=== PATIENT | male | born 1985 | race Caucasian/White ===

== ENCOUNTER 2016-10-21 17:06 | Emergency (ER) | payer SELFPAY ==
[2016-10-21] MEDS ORDERED: Sodium Chloride 0.9% 10 ML Syringe FLUSH PRN (17:27)
[2016-10-21 18:04] LABS: CHLORIDE,CL 105 mmol/L (101-111); SODIUM,NA 140 mmol/L (135-145)
[2016-10-21] MEDS ORDERED: GI Cocktail Oral Solution 30 ML PO ONE (18:58)
[2016-10-21] MEDS ORDERED: Pantoprazole 40 MG Vial IVPUSH ONE (18:59)
[2016-10-21 19:01] VITALS: BP 126/71
--- NOTE | 2016-10-21 19:14 | EDM.PDOC ---
Scribed by Yessi Pickens 10/21/16 1900 for Juno Ryder MD ED HPI GENERAL MEDICAL PROBLEM - General Chief Complaint: Chest Pain Stated Complaint: SHARP PAINS IN CHEST, UPPER BACK PAIN [id number] Time Seen by Provider: 10/21/16 17:15 Source of Information: Reports: Patient, RN, RN Notes Reviewed History Limitations: Reports: No Limitations - History of Present Illness INITIAL COMMENTS - FREE TEXT/NARRATIVE: Patient arrived by POV with pain radiating to the chest on and off worse today. He has a history of GERD and heartburn in the past. He feels it has been getting worse, but he has not been to the clinic. Chest Pain Score (Numeric/FACES): 6 - Related Data Allergies Allergy/AdvReac Type Severity Reaction Status Date / Time Penicillins Allergy Airway Verified 10/21/16 17:50 Tightness sertraline [From Zoloft] Allergy Airway Verified 10/21/16 17:50 Tightness Home Meds: Home Meds Albuterol [IJD: Ventolin HFA] 1 puff INH .TWICE DAILY 10/21/16 [History] Mag Hydrox/Al Hydrox/Simeth [Maalox Maximum Strength Susp] 10/21/16 [History] Past Medical History Gastrointestinal History: Reports: GERD Social & Family History - Family History Family Medical History: Noncontributory ED ROS GENERAL - Review of Systems Review Of Systems: ROS reveals no pertinent complaints other than HPI. ED EXAM, GENERAL - Physical Exam Exam: See Below Exam Limited By: No Limitations General Appearance: Alert, WD/WN, No Apparent Distress Eye Exam: Bilateral Eye: Normal Inspection Ears: Normal External Exam, Normal Canal, Hearing Grossly Normal, Normal TMs Nose: Normal Inspection, Normal Mucosa, No Blood Throat/Mouth: Normal Inspection, Normal Lips, Normal Teeth, Normal Gums, Normal Oropharynx, Normal Voice, No Airway Compromise Head: Atraumatic, Normocephalic Neck: Normal Inspection, Supple, Non-Tender, Full Range of Motion Respiratory/Chest: No Respiratory Distress, Lungs Clear, Normal Breath Sounds, No Accessory Muscle Use, Chest Non-Tender Cardiovascular: Normal Peripheral Pulses, Regular Rate, Rhythm, No Edema, No Gallop, No JVD, No Murmur, No Rub GI/Abdominal: Tender (mild epigastric) (Male) Exam: Deferred Rectal (Males) Exam: Deferred Back Exam: Normal Inspection, Full Range of Motion, NT Extremities: Normal Inspection, Normal Range of Motion, Non-Tender, Normal Capillary Refill, No Pedal Edema Neurological: Alert, Oriented, CN II-XII Intact, Normal Cognition, Normal Gait, Normal Reflexes, No Motor/Sensory Deficits Psychiatric: Normal Affect, Normal Mood Skin Exam: Warm, Dry, Intact, Normal Color, No Rash EKG INTERPRETATION EKG Date: 10/21/16 Time: 17:21 Rhythm: Other (sinus bradycardia) Rate (Beats/Min): 57 [place]: Normal P-Wave: Present QRS: Normal ST-T: Normal QT: Normal Course - Vital Signs Last Recorded V/S: Last Vital Signs Temp 36.8 C 10/21/16 19:00 Pulse 63 10/21/16 19:00 Resp 12 10/21/16 19:00 BP 126/71 10/21/16 19:00 Pulse Ox 98 10/21/16 19:00 - Orders/Labs/Meds Orders: Active Orders 24 hr Category Date Time Status EKG 12 Lead [EKG Documentation Completion] [RC] STAT Care 10/21/16 17:31 Active Peripheral IV Care [RC] . DIRECTED Care 10/21/16 17:31 Active Chest 1V Frontal [CR] Stat Exams 10/21/16 17:31 Taken DRUG SCREEN URINE BIORAD [URCHEM] Stat Lab 10/21/16 18:44 Received UA W/MICROSCOPIC [URIN] Stat Lab 10/21/16 18:44 Received Sodium Chloride 0.9% [Saline Flush] Med 10/21/16 17:27 Active 10 ml FLUSH ASDIRECTED PRN Peripheral IV Insertion Adult [OM.PC] Stat Oth 10/21/16 17:31 Ordered Medication Orders Sodium Chloride (Saline Flush) 10 ml FLUSH ASDIRECTED PRN PRN Reason: Keep Vein Open Last Admin: 10/21/16 18:11 Dose: 10 ml Labs: Laboratory Tests 10/21/16 10/21/16 10/21/16 Range/Units 17:40 17:40 17:40 WBC 6.8 (5.0-10.0) 10^3/uL RBC 4.16 L (4.6-6.2) 10^6/uL Hgb 13.4 L (14.0-18.0) g/dL Hct 39.8 L (40.0-54.0) % MCV 95.7 (80-100) fL MCH 32.2 (27.0-34.0) pg MCHC 33.7 (33.0-35.0) g/dL Plt Count 215 (150-450) 10^3/uL Neut % (Auto) 61.1 (42.2-75.2) % Lymph % (Auto) 28.0 (20.5-50.1) % [place] % (Auto) 7.8 (2-8) % Eos % (Auto) 2.8 (1.0-3.0) % Baso % (Auto) 0.3 (0.0-1.0) % D-Dimer, Quantitative < 100 (0-400) ng/mL Sodium 140 (135-145) mmol/L Potassium 4.3 (3.6-5.0) mmol/L Chloride 105 (101-111) mmol/L Carbon Dioxide 28.0 (21.0-31.0) mmol/L Anion Gap 11.3 BUN 18 (7-18) mg/dL Creatinine 1.1 (0.6-1.3) mg/dL Est Cr Clr Drug Dosing 98.19 mL/min Estimated GFR (MDRD) > 60 BUN/Creatinine Ratio 16.36 Glucose 113 H (74-105) mg/dL Calcium 8.9 (8.4-10.2) mg/dl Total Bilirubin 0.6 (0.2-1.0) mg/dL AST 22 (10-42) IU/L ALT 25 (10-60) IU/L Alkaline Phosphatase 45 (42-121) IU/L Troponin I < 0.02 (0.00-0.02) ng/ml Total Protein 6.9 (6.7-8.2) g/dl Albumin 4.1 (3.2-5.5) g/dl Globulin 2.8 Albumin/Globulin Ratio 1.46 Amylase 26 L (28-100) U/L Lipase 19 L (22-51) U/L Meds: Medications Generic Name Dose Route Start Last Admin Trade Name Freq PRN Reason Stop Dose Admin Sodium Chloride 10 ml 10/21/16 17:27 10/21/16 18:11 Saline Flush FLUSH 10 ml ASDIRECTED PRN Administration Keep Vein Open Discontinued Medications Generic Name Dose Route Start Last Admin Trade Name Samyq PRN Reason Stop Dose Admin Al Hydroxide/Mg Hydroxide 30 ml 10/21/16 18:58 10/21/16 19:12 Gi Cocktail PO 10/21/16 18:59 30 ml ONETIME ONE Administration Pantoprazole Sodium 40 mg 10/21/16 18:59 10/21/16 19:12 Protonix Iv IVPUSH 10/21/16 19:00 40 mg ONETIME ONE Administration - Radiology Interpretation Free Text/Narrative:: Chest x-ray: No evidence for acute abnormality. See rad report. Departure - Departure Time of Disposition: 18:52 Disposition: Home, Self-Care 01 Condition: Good Clinical Impression: Esophageal spasm, Atypical chest pain Gastritis Qualifiers: Gastritis type: unspecified gastritis Chronicity: acute Gastritis bleeding: without bleeding Qualified Code(s): K29.00 - Acute gastritis without bleeding Instructions: Gastritis, Adult, [id number], Esophageal Spasm, Nonspecific Chest Pain Forms: ED Department Discharge Additional Instructions: RX: Omeprazole 3mg. RX: Carafate 1gram. Abstain from smoking to reduce her stomach and esophageal symptoms. Follow up in clinic next week for a recheck. - My Orders Last 24 Hours: My Active Orders 10/21/16 17:27 Sodium Chloride 0.9% [Saline Flush] 10 ml FLUSH ASDIRECTED PRN 10/21/16 17:31 EKG 12 Lead [EKG Documentation Completion] [RC] STAT Peripheral IV Care [RC] . DIRECTED Chest 1V Frontal [CR] Stat Peripheral IV Insertion Adult [OM.PC] Stat 10/21/16 18:44 DRUG SCREEN URINE BIORAD [URCHEM] Stat UA W/MICROSCOPIC [URIN] Stat - Assessment/Plan Last 24 Hours: My Active Orders 10/21/16 17:27 Sodium Chloride 0.9% [Saline Flush] 10 ml FLUSH ASDIRECTED PRN 10/21/16 17:31 EKG 12 Lead [EKG Documentation Completion] [RC] STAT Peripheral IV Care [RC] . DIRECTED Chest 1V Frontal [CR] Stat Peripheral IV Insertion Adult [OM.PC] Stat 10/21/16 18:44 DRUG SCREEN URINE BIORAD [URCHEM] Stat UA W/MICROSCOPIC [URIN] Stat I have read and agree with the documentation that has been completed regarding this visit. By signing this record, I attest that the documentation was completed in my physical presence and is an accurate record of the encounter.
--- NOTE | 2016-10-22 20:20 | EKG ---
10/21/2016 - STEVE NEGRO - This 12-lead EKG shows a sinus bradycardia with a ventricular rate of 57. Normal axis and intervals. No acute ST-segment or T-wave changes. [facility] /[id number]
== END 2016-10-21 19:25 | disposition home or self-care (01) ==
LOC: DL.ED 17:06
DX: K29.00 Acute gastritis without bleeding (principal); K22.4 Dyskinesia of esophagus; Z79.899 Other long term (current) drug therapy; Z88.0 Allergy status to penicillin; Z88.8 Allergy status to other drugs, medicaments and biological substances
CPT/HCPCS: 36415; 71010; 80053; 80305; 81001; 82150; 83690; 84484; 85025; 85379; 93005; 93010; 96374; 99285; A9270; C9113; J7050; 99284

== ENCOUNTER 2017-01-03 22:10 | Emergency (ER) | payer OTHER ==
[2017-01-03] MEDS ORDERED: Albuterol/Ipratropium 3.0-0.5 MG/3 ML Neb Soln NEB ONE (22:14)
[2017-01-03 22:15] VITALS: BP 132/79
[2017-01-03] MEDS ORDERED: Azithromycin 250 MG Tab PO ONE (22:19)
--- NOTE | 2017-01-03 22:21 | EDM.PDOC ---
ED HPI GENERAL MEDICAL PROBLEM - General Chief Complaint: Respiratory Problem Stated Complaint: COUGH [id number] Time Seen by Provider: 01/03/17 22:15 Source of Information: Reports: Patient History Limitations: Reports: No Limitations - History of Present Illness INITIAL COMMENTS - FREE TEXT/NARRATIVE: been coughing past few days, been taking cough drops but now are irritating his ulcers. non smoker. - Related Data Allergies Allergy/AdvReac Type Severity Reaction Status Date / Time Penicillins Allergy Airway Verified 10/21/16 17:50 Tightness sertraline [From Zoloft] Allergy Airway Verified 10/21/16 17:50 Tightness Home Meds: Home Meds Albuterol [IJD: Ventolin HFA] 1 puff INH .TWICE DAILY 10/21/16 [History] Mag Hydrox/Al Hydrox/Simeth [Maalox Maximum Strength Susp] 10/21/16 [History] Past Medical History Cardiovascular History: Reports: Other (See Below) Other Cardiovascular History: ?enlarged heart on previous EKG Respiratory History: Reports: Other (See Below) Other Respiratory History: unsure if diagnosed with asthmas, has albuterol inhaler Gastrointestinal History: Reports: GERD Musculoskeletal History: Reports: Fracture Psychiatric History: Reports: Anxiety - Past Surgical History HEENT Surgical History: Reports: Tonsillectomy Social & Family History - Family History Family Medical History: Noncontributory - Tobacco Use Smoking Status *Q: Current Every Day Smoker Years of Tobacco use: 6 Packs/Tins Daily: 0.5 Second Hand Smoke Exposure: Yes - Caffeine Use Caffeine Use: Reports: None - Recreational Drug Use Recreational Drug Use: No ED ROS GENERAL - Review of Systems Review Of Systems: ROS reveals no pertinent complaints other than HPI. ED EXAM, GENERAL - Physical Exam Exam: See Below Exam Limited By: No Limitations General Appearance: Alert, WD/WN, Mild Distress, Other (episodic cough spasms) Ears: Hearing Grossly Normal Throat/Mouth: Normal Voice, No Airway Compromise Head: Atraumatic Neck: Non-Tender, Full Range of Motion Respiratory/Chest: No Respiratory Distress, No Accessory Muscle Use, Rhonchi, Wheezing. No: Decreased Breath Sounds, Retractions, Splinting Cardiovascular: Regular Rate, Rhythm GI/Abdominal: Soft, Non-Tender Neurological: Alert, Oriented, Normal Cognition, Normal Gait, No Motor/Sensory Deficits Psychiatric: Normal Affect, Normal Mood Skin Exam: Warm, Dry, Normal Color Lymphatic: No Adenopathy Course - Vital Signs Last Recorded V/S: Last Vital Signs Temp 36.4 C 01/03/17 22:14 Pulse 76 01/03/17 22:14 Resp 16 01/03/17 22:14 BP 132/79 01/03/17 22:14 Pulse Ox 97 01/03/17 22:14 - Orders/Labs/Meds Orders: Active Orders 24 hr Category Date Time Status RT Aerosol Therapy [RC] ASDIRECTED Care 01/03/17 22:14 Active Meds: Medications Discontinued Medications Generic Name Dose Route Start Last Admin Trade Name Freq PRN Reason Stop Dose Admin Albuterol/Ipratropium 3 ml 01/03/17 22:14 01/03/17 22:18 Duoneb 3.0-0.5 Mg/3 Ml NEB 01/03/17 22:15 3 ml ONETIME ONE Administration Azithromycin 500 mg 01/03/17 22:19 01/03/17 22:26 Zithromax PO 01/03/17 22:20 500 mg ONETIME ONE Administration Departure - Departure Time of Disposition: 22:25 Disposition: Home, Self-Care 01 Condition: Good Clinical Impression: Acute bronchiolitis Qualifiers: Bronchiolitis organism: unspecified organism Qualified Code(s): J21.9 - Acute bronchiolitis, unspecified - Discharge Information Instructions: Acute Bronchitis, [id number] Forms: ED Department Discharge Additional Instructions: 1) sleep as much as possible 2) drink lots of liquids 3) don't sleep flat 4) recheck as needed rx given; [id number] phenergan codeine syrup qid prn 4 oz - My Orders Last 24 Hours: My Active Orders 01/03/17 22:14 RT Aerosol Therapy [RC] ASDIRECTED - Assessment/Plan Last 24 Hours: My Active Orders 01/03/17 22:14 RT Aerosol Therapy [RC] ASDIRECTED
== END 2017-01-03 22:28 | disposition home or self-care (01) ==
LOC: DL.ED 22:10
DX: J21.9 Acute bronchiolitis, unspecified (principal); F17.210 Nicotine dependence, cigarettes, uncomplicated; Z79.899 Other long term (current) drug therapy; Z88.0 Allergy status to penicillin; Z88.8 Allergy status to other drugs, medicaments and biological substances
CPT/HCPCS: 94640; 99283; A9270